=== PATIENT | male | born 1955 | race Caucasian/White ===

== ENCOUNTER 2019-08-10 23:29 | Emergency (ER) | payer BC ==
[~2019-08-10] VITALS: Ht 180.3 cm; Wt 104.3 kg
[2019-08-10 23:40] VITALS: Ht 180.3 cm; Wt 104.3 kg
[2019-08-11 01:07] VITALS: BP 136/73
== END 2019-08-11 01:07 | disposition home or self-care (01) ==
LOC: EDBD 23:29 → ED 23:29
DX: I83.92 Asymptomatic varicose veins of left lower extremity (principal); I10 Essential (primary) hypertension; E11.9 Type 2 diabetes mellitus without complications
CPT/HCPCS: J2001